=== PATIENT | female | born 1955 | race Caucasian/White ===

== ENCOUNTER 2020-03-04 06:35 | Day surgery (SDC) | payer MEDICARE, BC ==
[2020-02-24 16:25] LABS: BASOPHILS % (AUTO) 0.4 % (0-1); EOSINOPHILS # (AUTO) 0.1 X10'3 (0-0.9); EOSINOPHILS % (AUTO) 1.6 % (0-6); LYMPHOCYTES # (AUTO) 2.4 X10'3 (1.1-4.8); MEAN CORPUSCULAR HEMOGLOBIN 32.3 PG (27.0-31.0); MEAN CORPUSCULAR HGB CONC 33.4 g/dL (33.0-36.5); MEAN CORPUSCULAR VOLUME 96.7 FL (78-98); MEAN PLATELET VOLUME 8.6 FL (7.4-10.4); MONOCYTES # (AUTO) 0.6 X10'3 (0-0.9); MONOCYTES % (AUTO) 9.8 % (2-12); NEUTROPHILS # (AUTO) 3.2 X10'3 (1.8-7.7); NEUTROPHILS % (AUTO) 50.2 % (42-75); PRE OP HEMATOCRIT 41.5 % (35.0-45.0); PRE OP HEMOGLOBIN 13.8 g/dL (12.0-16.0); PRE OP PLATELET COUNT 202 X10'3 (140-440); RED BLOOD COUNT 4.29 X10'6 (4.20-5.60); RED CELL DISTRIBUTION WIDTH 12.9 % (11.5-14.5)
[2020-02-24 16:31] LABS: ALBUMIN 3.9 G/DL (3.4-5.0); ALBUMIN/GLOBULIN RATIO 1.3 (1.1-1.5); ALKALINE PHOSPHATASE 93 IU/L (46-116); BLOOD UREA NITROGEN 23 MG/DL (7-18); BUN/CREATININE RATIO 32.9 (6.6-38.0); CALCIUM 8.9 MG/DL (8.5-10.1); CHLORIDE 108 MMOL/L (99-107); PRE OP ALT 17 U/L (30-65); PRE OP ANION GAP 4 (8-16); PRE OP AST 16 U/L (10-37); PRE OP BILIRUB, TOTAL 0.2 MG/DL (0.0-1.0); PRE OP GLUCOSE 97 MG/DL (70-104); PRE OP POTASSIUM 4.1 MMOL/L (3.4-5.1); PRE OP SODIUM 144 MMOL/L (135-145); TOTAL CARBON DIOXIDE 32.5 MMOL/L (24-32); eGFR 84 ML/MIN
[~2020-03-04] VITALS: Ht 172.7 cm; Wt 68.0 kg
[2020-03-04] VITALS (12 sets, daily range): BP systolic 115–149; BP diastolic 61–79
[~2020-03-04 06:35] MED LIST: ALPR1TAB2 PO; CALC200T PO; COLLAGEN PO; ERGO400T7 PO; RED600TA PO; ROSU5TAB PO; SERT100T PO; UBID30CA11 PO; VITA400C67 PO; ceFAZolin 2gm in dextrose, iso 50 ML IV ONE; famotidine 20mg tablet PO ONE; ringers solution, lacted 1,000 ML IV SCH
[2020-03-04] MEDS ORDERED: scopolamine 1.5mg patch.TD72 TD ONE (07:55)
[2020-03-04] MEDS ORDERED: morphine 2 MG/ML inj. syringe IV PRN (08:30)
[2020-03-04] MEDS ORDERED: morphine 4 MG/ML inj SYRINge IV PRN (08:30)
[2020-03-04] MEDS ORDERED: fentaNYL/PF 50MCG/1 ML 2ML syringe IV PRN ×2 (08:30)
[2020-03-04] MEDS ORDERED: hydrALAZINE 20mg/ml inj. IV PRN (08:30)
[2020-03-04] MEDS ORDERED: labetalol 20mg/4ml (5mg/ml) syringe IV PRN (08:30)
[2020-03-04] MEDS ORDERED: ringers solution, lacted 1,000 ML IV SCH (08:30)
[2020-03-04] MEDS ORDERED: ondansetron/PF 4mg/2ml inj IV PRN (08:30)
[2020-03-04] MEDS ORDERED: sevoflurane 250ml liquid IH ONE (08:55)
[2020-03-04] MEDS ORDERED: fentaNYL/PF 50MCG/1 ML 2ML syringe ONE (08:56)
[2020-03-04] MEDS ORDERED: midazolam 2 mg/2 ml injection ONE (08:57)
[2020-03-04] MEDS ORDERED: propofol inj 20 ML IV ONE (08:57)
[2020-03-04] MEDS ORDERED: LIDOcaine 2% (20mg/ml) 5ml vial ONE (08:57)
[2020-03-04] MEDS ORDERED: dexamethasone sod phosphate 4mg/ml inj. ONE (08:57)
[2020-03-04] MEDS ORDERED: ROPIVAcaine 0.5% (5mg/ml) 30ml vial ONE (08:57)
[2020-03-04] MEDS ORDERED: ondansetron/PF 4mg/2ml inj ONE (09:10)
[2020-03-04] MEDS ORDERED: epiNEPHrine 1 mg/ml 30ml MDV ONE (10:54)
--- NOTE | 2020-03-04 11:17 | NUR ---
RECEIVED FROM OR VIA [facility] ACCOMPANIED BY ANESTHESIOLOGIST DR DAMIAN, REPORT GIVEN. 18 GAUGE PIV RIGHT WRIST PATENT AND RUNNING LR AT 100 ML/HR.SKIN PINK AND WARM. VSS, PERIPHERAL PULSES PRESENT, GOOD CAP REFILL, 4X4 DRESSING WITH IMMOBILIZER L SHOULDER CDI.. PT DENIES PAIN AT THIS TIME.
--- NOTE | 2020-03-04 13:07 | NUR ---
18 GAUGE PIV RIGHT WRIST DC/D CATH TIP INTACT .SKIN PINK AND WARM. VSS, PERIPHERAL PULSES PRESENT, GOOD CAP REFILL, 4X4 DRESSING WITH IMMOBILIZER L SHOULDER CDI.. PT DENIES PAIN AT THIS TIME. DISCHARGE INSTRUSTIONS GIVEN PT VERBALIZED UNDERSTANDING. TRANSPORTED TO IN PERSONAL VEHICLE TO HOME
== END 2020-03-04 13:07 | disposition home or self-care (01) ==
LOC: PAS 06:35
PROVIDERS: ATTEND Orthopaedic Surgery
DX: S46.012A Strain of muscle(s) and tendon(s) of the rotator cuff of left shoulder, initial encounter (principal); S46.292A Other injury of muscle, fascia and tendon of other parts of biceps, left arm, initial encounter; M19.012 Primary osteoarthritis, left shoulder; M65.812 Other synovitis and tenosynovitis, left shoulder; F32.9 Major depressive disorder, single episode, unspecified; Z72.89 Other problems related to lifestyle; Z87.891 Personal history of nicotine dependence; Z88.8 Allergy status to other drugs, medicaments and biological substances; Z79.899 Other long term (current) drug therapy; Z98.890 Other specified postprocedural states; X58.XXXA Exposure to other specified factors, initial encounter; Y93.89 Activity, other specified; Y92.89 Other specified places as the place of occurrence of the external cause; Y99.8 Other external cause status; G89.18 Other acute postprocedural pain
CPT/HCPCS: 29824; 29826; 29827; 36415; 64415; 80053; 82948; 85025; 87635; 93005; C1713; J0171; J1100; J2001; J2250; J2405; J2704; J3010; J7120; A4215; A4565; A4618; A6449; A7000; J2795